=== PATIENT | male | born 1945 | race Caucasian/White ===

== ENCOUNTER 2018-02-08 06:10 | Emergency (ER) | payer MEDICARE ==
[~2018-02-08] VITALS: Ht 180.3 cm; Wt 117.0 kg
--- NOTE | 2018-02-08 06:20 | NUR ---
ER MD DR JOHANNE VELASQUEZ PT
[2018-02-08] MEDS ORDERED: IBUPROFEN 600 MG TAB PO STA (06:21)
[2018-02-08] MEDS ORDERED: cefTRIAXone 1,000 MG in LIDOCAINE MPF 1% - 5 mL VIAL 2.1 ML IM STA (06:21)
[2018-02-08] MEDS ORDERED: ACETAMINOPHEN EXTRA STRENGTH 500 MG TAB PO STA (06:21)
--- NOTE | 2018-02-08 06:22 | NUR ---
72/M CAME IN W C/O COUGH AND SORE THROAT X 1 DAY. ALL LUNG SOUNSD CBTA, 16 RR EVEN AND UNLABORED. DENIES FEVER/CHILLS, N/V/D. PMH: DM
--- NOTE | 2018-02-08 06:22 | NUR ---
Patient ambulated to bed 12. RN evaluating patient at bedside.
[2018-02-08 06:23] VITALS: BP 167/88
[2018-02-08] MEDS ORDERED: METF500T PO (06:26)
[2018-02-08] MEDS ORDERED: cefTRIAXone 1,000 MG VIAL ONE (06:31)
[2018-02-08 06:45] VITALS: BP 138/72
--- NOTE | 2018-02-08 06:45 | NUR ---
Patient discharged with v/s stable. Written and verbal after care instructions given and explained. Patient alert, oriented and verbalized understanding of instructions. Ambulatory with steady gait. All questions addressed prior to discharge. ID band removed. Patient advised to follow up with PMD. Rx of AUGMENTIN, IBUPROFEN, TYLENOL, MUCINEX given. Patient educated on indication of medication including possible reaction and side effects. Opportunity to ask questions provided and answered.
== END 2018-02-08 06:45 | disposition home or self-care (01) ==
LOC: MED 06:10
DX: J02.9 Acute pharyngitis, unspecified (principal); E11.9 Type 2 diabetes mellitus without complications; Z79.84 Long term (current) use of oral hypoglycemic drugs
CPT/HCPCS: 96372; 99283; J0696

== ENCOUNTER 2018-04-09 08:05 | Emergency (ER) | payer MEDICARE ==
[~2018-04-09] VITALS: Ht 170.2 cm; Wt 119.8 kg
[~2018-04-09 08:05] MED LIST: METF500T PO
[2018-04-09 08:08] VITALS: BP 149/81
[2018-04-09 10:45] VITALS: BP 150/83
== END 2018-04-09 10:45 | disposition home or self-care (01) ==
LOC: MED 08:05
DX: J02.9 Acute pharyngitis, unspecified (principal); R07.9 Chest pain, unspecified; E11.9 Type 2 diabetes mellitus without complications; Z79.84 Long term (current) use of oral hypoglycemic drugs
CPT/HCPCS: 36415; 82948; 87804; 99283

== ENCOUNTER 2018-06-13 16:19 | Emergency (ER) | payer MEDICARE ==
[~2018-06-13] VITALS: Ht 180.3 cm; Wt 119.5 kg
[2018-06-13 16:34] VITALS: BP 118/57
--- NOTE | 2018-06-13 16:44 | NUR ---
patient ambulated to ER bed 3
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
[2018-06-13] MEDS ORDERED: ASPIRIN 325 MG TAB PO ONE (17:10)
--- NOTE | 2018-06-13 17:15 | NUR ---
DR. STRONG EXPLAINED PT'S CONDITION AND NEED TO TRANSFER TO HIGHER LEVEL OF CARE. PT VERBALZIED UNDERSTANDING.
[2018-06-13 17:30] VITALS: BP 118/57
--- NOTE | 2018-06-13 17:30 | NUR ---
[facility] CAME IN TO [facility] PT AND TRANSFER TO [facility] ER. PT SIGNED TRANSFER DOCUMENTATIONS, ALL BELONGS GOES WITH PT. PT IS IN [place] AT THIS TIME, PT LEFT ER VIA GURNEY WITHOUT ANY ACCIDENT.
[2018-06-13 17:35] LABS: BASOPHILS % (AUTO) 0.3 % (0.0-2.0); EOSINOPHILS # (AUTO) 0.1 K/uL (0-0.4); EOSINOPHILS % (AUTO) 0.6 % (0.0-4.0); HEMATOCRIT 40.9 % (36-52); HEMOGLOBIN 13.8 g/dL (12.0-18.0); LYMPHOCYTES # (AUTO) 1.4 K/uL (2.0-11.5); LYMPHOCYTES % (AUTO) 12.6 % (20.5-51.1); MEAN CORPUSCULAR HEMOGLOBIN 31 pg (27-31); MEAN CORPUSCULAR HGB CONC 34 g/dL (33-37); MEAN CORPUSCULAR VOLUME 92.1 fL (80-94); MONOCYTES % (AUTO) 9.7 % (1.7-9.3); NEUTROPHILS # (AUTO) 8.3 K/uL (1.8-7.7); NEUTROPHILS % (AUTO) 76.8 % (42.2-75.2); PLATELET COUNT (AUTO) 215 K/uL (140-450); RED BLOOD CELL COUNT(AUTO) 4.44 MIL/uL (4.20-6.10); RED CELL DISTRIBUTION WIDTH 13.9 % (11.6-13.7); WHITE BLOOD COUNT (AUTO) 10.8 K/uL (4.8-10.8)
--- NOTE | 2018-06-13 17:40 | NUR ---
CALLED [facility], REPORT GIVEN TO JAMAR MILIAN.
[2018-06-13 18:09] LABS: ALBUMIN 3.3 g/dL (3.4-5.0); ANION GAP 10.5 (8-16); ASPARTATE AMINOTRANSFERASE 241 U/L (15-37); CARBON DIOXIDE 29.6 mmol/L (21-32); CHLORIDE 105 mmol/L (98-107); CREATININE 0.9 mg/dL (0.7-1.3); GLUCOSE 115 mg/dL (74-106); POTASSIUM 4.1 mmol/L (3.5-5.1); SODIUM SERUM 141 mmol/L (136-145); TOTAL BILIRUBIN 0.7 mg/dL (0.0-1.0); UREA NITROGEN, BLOOD 10 mg/dL (7-18)
[2018-06-13 18:26] LABS: PROTHROMBIN TIME 10.1 secs (10.8-13.4)
[2018-06-13 19:08] LABS: CREATINE KINASE MB 208.8 ng/mL (0-3.6)
--- NOTE | 2018-06-13 19:36 | NUR ---
RECVD LAB RESULTS FROM GERARDO, TROPONIN [phone], NOTED BY DR. STRONG.
== END 2018-06-13 17:30 | disposition short-term general hospital (02) ==
LOC: MED 16:19
DX: I21.3 ST elevation (STEMI) myocardial infarction of unspecified site (principal); E11.9 Type 2 diabetes mellitus without complications; Z79.84 Long term (current) use of oral hypoglycemic drugs
CPT/HCPCS: 36415; 80053; 82550; 82553; 82948; 84484; 85025; 85610; 85730; 93005; 96374; 99285; J1644; 99284

== ENCOUNTER 2019-03-26 12:11 | Emergency (ER) | payer MEDICARE ==
[~2019-03-26] VITALS: Ht 180.3 cm; Wt 108.9 kg
[2019-03-26 12:26] VITALS: BP 135/68
--- NOTE | 2019-03-26 12:34 | NUR ---
Patient ambulated to bed 12. RN evaluating patient at bedside.
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
--- NOTE | 2019-03-26 13:12 | NUR ---
REPORT GIVEN TO JAMAR STEPHEN FOR CONTINUITY OF CARE
--- NOTE | 2019-03-26 13:38 | NUR ---
PATIENT ALERT AND ORIENTED, BREATHING EVEN AND UNLABORED, WILL CONTINUE TO MONITOR.
[2019-03-26 14:56] VITALS: BP 130/68
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
== END 2019-03-26 14:56 | disposition home or self-care (01) ==
LOC: MED 12:11
DX: S61.412A Laceration without foreign body of left hand, initial encounter (principal); S20.219A Contusion of unspecified front wall of thorax, initial encounter; E11.9 Type 2 diabetes mellitus without complications; Z79.899 Other long term (current) drug therapy; V49.9XXA Car occupant (driver) (passenger) injured in unspecified traffic accident, initial encounter; W54.0XXA Bitten by dog, initial encounter; Y93.89 Activity, other specified; Y92.89 Other specified places as the place of occurrence of the external cause; Y99.8 Other external cause status
CPT/HCPCS: 90471; 90715; 99283